=== PATIENT | male | born 1945 | race Caucasian/White ===

== ENCOUNTER → 2017-01-04 | Outpatient (CLI) | payer MEDICARE, OTHER | END | disposition home or self-care (01) | LOC: GMAB 11:02 | PROVIDERS: ATTEND Family Medicine | DX: N18.3 Chronic kidney disease, stage 3 (moderate) (principal) ==

== ENCOUNTER → 2017-03-07 | Outpatient (CLI) | payer MEDICARE, OTHER | END | disposition home or self-care (01) | LOC: GMAB 14:50 | PROVIDERS: ATTEND Family Medicine | DX: Z12.5 Encounter for screening for malignant neoplasm of prostate (principal); I10 Essential (primary) hypertension | CPT/HCPCS: 84443; G0103 ==

== ENCOUNTER → 2017-03-09 | Outpatient (CLI) | payer MEDICARE | LOC: GMAB 16:52 | PROVIDERS: ATTEND Family Medicine | DX: D50.9 Iron deficiency anemia, unspecified (principal); E53.8 Deficiency of other specified B group vitamins ==

== ENCOUNTER → 2017-05-22 | Outpatient (CLI) | payer MEDICARE, OTHER | LOC: GMAB 16:48 | PROVIDERS: ATTEND Family Medicine | DX: N18.3 Chronic kidney disease, stage 3 (moderate) (principal) ==

== ENCOUNTER 2017-06-14 07:45 | Day surgery (SDC) | payer MEDICARE, OTHER ==
[~2017-06-14 07:45] MED LIST: LACTATED RINGERS 1,000 ML ONE
--- NOTE | 2017-06-14 09:15 | OP ---
DATE OF SURGERY: 06/14/17 PREPROCEDURE DIAGNOSIS: 1. History of colonic polyps with last colonoscopy 8 years ago. POSTPROCEDURE DIAGNOSIS: 1. Ascending colon polyp. 2. Diverticulosis. PROCEDURE: 1. Colonoscopy with snare polypectomy. SURGEON: Jefry Connelly MD. SEDATION: Monitored anesthesia care. ESTIMATED BLOOD LOSS: Less than 5 mL. PROCEDURE: Informed consent was obtained prior to sedation. The preprocedure cardiopulmonary assessment was satisfactory. The patient was brought to the Endoscopy Suite and placed in the left lateral decubitus position. The patient was then sedated by the anesthesia team. Digital rectal exam revealed no abnormalities. The tip of the Olympus colonoscope was inserted into the rectum and advanced under direct visualization to the terminal ileum. The cecum was identified by the presence of the appendiceal orifice and ileocecal valve. Preparation of the colon was good. Upon reaching the cecum, the endoscope was slowly withdrawn from the patient with careful attention paid to the entire colonic mucosa for the identification of any flat polyps or small vascular lesions. In the ascending colon, there was a 5 mm sessile polyp. This was resected with a cold snare and retrieved completely. In the sigmoid colon, there was moderate diverticulosis. Retroflexed view of the anal verge showed no abnormalities. The endoscope was then withdrawn from the patient and the procedure terminated. RECOMMENDATION: 1. Discharge the patient home with escort. 2. Advance to regular diet. 3. Resume regular activity tomorrow. 4. Followup pathology results. 5. Surveillance colonoscopy in 5 years' time. #[id number] [facility]
[2017-06-14] MEDS ORDERED: PROPOFOL 200 MG/20 ML VIAL IV ONE (10:00)
[2017-06-14 10:52] VITALS: BP 156/80; TEMP 98.3; O2SAT 99
== END 2017-06-14 10:05 | disposition home or self-care (01) ==
LOC: AMB 07:45
PROVIDERS: ATTEND Internal Medicine Gastroenterology
DX: R19.7 Diarrhea, unspecified (principal); D12.2 Benign neoplasm of ascending colon; K57.30 Diverticulosis of large intestine without perforation or abscess without bleeding; E78.5 Hyperlipidemia, unspecified; I10 Essential (primary) hypertension; K21.9 Gastro-esophageal reflux disease without esophagitis; Z86.010 Personal history of colon polyps; Z79.82 Long term (current) use of aspirin; Z79.899 Other long term (current) drug therapy
CPT/HCPCS: 00810; 45385; 88305; J3490; J7120

== ENCOUNTER → 2017-07-04 | Outpatient (CLI) | payer MEDICARE, OTHER | END | disposition home or self-care (01) | LOC: GMAB 13:56 | PROVIDERS: ATTEND Family Medicine | DX: N18.4 Chronic kidney disease, stage 4 (severe) (principal); E03.9 Hypothyroidism, unspecified ==

== ENCOUNTER → 2017-08-07 | Outpatient (CLI) | payer MEDICARE, OTHER | END | disposition home or self-care (01) | LOC: GMAB 14:36 | PROVIDERS: ATTEND Family Medicine | DX: N18.4 Chronic kidney disease, stage 4 (severe) (principal) ==

== ENCOUNTER → 2017-09-18 | Outpatient (CLI) | payer MEDICARE, OTHER | END | disposition home or self-care (01) | LOC: GMAB 14:41 | PROVIDERS: ATTEND Family Medicine | DX: R97.20 Elevated prostate specific antigen [PSA] (principal) ==

== ENCOUNTER → 2017-11-06 | Outpatient (CLI) | payer MEDICARE, OTHER | LOC: GMAB 14:44 | PROVIDERS: ATTEND Family Medicine | DX: N18.4 Chronic kidney disease, stage 4 (severe) (principal) ==

== ENCOUNTER → 2017-12-15 | Outpatient (CLI) | payer MEDICARE, OTHER | LOC: GMAB 11:27 | PROVIDERS: ATTEND Family Medicine | DX: N18.4 Chronic kidney disease, stage 4 (severe) (principal) ==

== ENCOUNTER → 2018-02-19 | Outpatient (CLI) | payer MEDICARE, OTHER | LOC: GMAB 14:32 | PROVIDERS: ATTEND Family Medicine | DX: N18.4 Chronic kidney disease, stage 4 (severe) (principal) ==

== ENCOUNTER → 2018-05-28 | Outpatient (CLI) | payer MEDICARE, OTHER | LOC: GMAE 17:14 | PROVIDERS: ATTEND Family Medicine | DX: N18.4 Chronic kidney disease, stage 4 (severe) (principal); I12.9 Hypertensive chronic kidney disease with stage 1 through stage 4 chronic kidney disease, or unspecified chronic kidney disease ==

== ENCOUNTER → 2018-06-01 | Outpatient (CLI) | payer MEDICARE, OTHER ==
--- NOTE | 2018-06-04 08:06 | MRI ---
EXAM DESCRIPTION: Brain w/oContrast (accession [id number]), Orbit,Face Neck w/o Contrast (accession [id number]) CLINICAL HISTORY: CLONIC HEMIFACIAL SPASM COMPARISON: None TECHNIQUE: Multiplanar, multi sequence MR images of the head are obtained without IV gadolinium contrast using standard imaging protocol. MRI images of the orbits are also obtained with and without infusion of IV gadolinium contrast using standard imaging protocol. FINDINGS: The midline structures are not displaced. Sulci are age appropriate. The lateral, third, and fourth ventricles are normal in size, shape, and anatomic positioning. Normal basilio-white differentiation is seen. Normal flow voids are seen in the major intracranial vessels including the dural venous sinuses. Plaque is seen in the left vertebral artery at the skull base. The left vertebral artery is dominant. There is no evidence of mass, mass effect, hydrocephalus, or acute intracranial hemorrhage. No abnormal extra-axial fluid collections are seen. No abnormal increased signal is seen on FLAIR, T2, or diffusion-weighted sequences. No abnormal masses seen in the region of the internal auditory canal or cerebellopontine angle region. Cavernous sinuses are unremarkable. 7th and 8th cranial nerves are unremarkable. The cochlea and semicircular canals are normal and symmetric. The 5th cranial nerves are unremarkable. No abnormal increased T2 signal is seen in the region of the 7th cranial nerves. The 5th cranial nerves are unremarkable. Visualized parotid glands are unremarkable. The orbits and ocular globes are unremarkable. Extraocular muscles appear symmetric and unremarkable. Mild, 5 mm deviation of the mid bony nasal septum towards the left is seen. The pituitary is unremarkable. Mild mucosal thickening is seen in the bilateral maxillary sinuses. The visualized orbits and mastoid air cells are unremarkable. IMPRESSION: Age-appropriate atrophy. No MRI evidence of acute intracranial ischemia. Unremarkable MRI of the internal auditory canals and orbits. Electronically signed by: Brandon Leyva MD 06/04/2018 8:05 AM CDT
== END ==
LOC: MRI 13:00
PROVIDERS: ATTEND Otolaryngology
DX: G51.39 Clonic hemifacial spasm, unspecified (principal); G31.9 Degenerative disease of nervous system, unspecified

== ENCOUNTER → 2018-06-07 | Outpatient (CLI) | payer MEDICARE, OTHER ==
--- NOTE | 2018-06-08 08:39 | US ---
EXAM DESCRIPTION: Sonogram right upper quadrant limited CLINICAL HISTORY: ABN LIVER FUNCTION COMPARISON: Previous renal sonogram March 23, 2016 TECHNIQUE: Right upper quadrant ultrasound FINDINGS: Pancreas: Visualized portions of the pancreas are unremarkable. Bowel gas obscures some areas. Aorta/inferior vena cava: No aortic aneurysm. Normal inferior vena cava. Liver: The liver is homogeneous in texture with increased echogenicity consistent with hepatic steatosis. The liver length of 16 cm is normal. Tiny cyst in the inferior right lobe of the liver measures 8 mm. No solid appearing liver lesion or intrahepatic bile duct dilatation. No liver surface irregularity. Normal appearance of the portal vein and hepatic veins. Gallbladder: Gallbladder is normal in size. Echogenic foci in the gallbladder lumen could be small calculi, polyps or both. On one image, one of the foci appears to have posterior acoustical shadowing suggesting a small stone. On other images, some of the echogenic foci are extending into the lumen from the nondependent wall consistent with polyps in the 2 to 4 mm size range. Sonographic Whitlock sign was reported as negative. No gallbladder wall thickening or other evidence of acute inflammation. Common bile duct: Normal caliber measuring 3.0 mm. Right kidney: Renal length is 9.1 cm. Normal cortical echogenicity. There is diffuse cortical thinning consistent with atrophy or chronic scarring. No hydronephrosis is seen. No renal mass or shadowing calculus. Compared to previous study March 23, 2016, right renal length was measured at 9.3 cm at that time. There was cortical thinning and this appears to have progressed somewhat. IMPRESSION: Hyperechoic liver consistent with diffuse hepatic steatosis. There right renal cortex consistent with chronic scarring or atrophy. Small polyps and/or stones in the gallbladder. Electronically signed by: Bryan Mercado MD 06/08/2018 8:38 AM CDT
--- NOTE | 2018-06-08 08:41 | US ---
EXAM DESCRIPTION: Soft Tissue,Extremity CLINICAL HISTORY: 73 years Male, ENLARGED LYMPH NODES COMPARISON: None. FINDINGS: Patient is said to have a palpable mass in the left axillary region. Sono shows thickening of the fatty tissue with appearance suggesting a lipoma measuring approximately 4.5 cm in length and 1.3 cm in thickness. Unilateral with this 4 cm. No enlarged lymph nodes. IMPRESSION: Lipoma of the left axilla. Electronically signed by: Bryan Mercado MD 06/08/2018 8:39 AM CDT
== END ==
LOC: US 12:33
PROVIDERS: ATTEND Family Medicine
DX: R94.5 Abnormal results of liver function studies (principal); R59.0 Localized enlarged lymph nodes

== ENCOUNTER → 2018-06-14 | Outpatient (CLI) | payer MEDICARE, OTHER | LOC: GMAE 14:40 | PROVIDERS: ATTEND Family Medicine | DX: R94.5 Abnormal results of liver function studies (principal) ==

== ENCOUNTER 2018-07-22 15:18 | Emergency (ER) | payer MEDICARE, OTHER ==
[2018-07-22] MEDS ORDERED: SODIUM CHLORIDE 0.9% 1000ML 1,000 ML IVS ONE ×2 (15:42→17:42)
--- NOTE | 2018-07-22 16:46 | RAD ---
EXAM DESCRIPTION: Chest,1 View CLINICAL HISTORY: cough COMPARISON: 02/22/2016 FINDINGS: There is mildly increased prominence of the right superior mediastinum / right perihilar soft tissue attenuation,, which suggests enlargement of the ascending aorta or of increased caliber of central right pulmonary vessels versus right perihilar lymph node enlargement. Cardiac silhouette is otherwise within normal limits. There is no other focal parenchymal or pleural disease. Visualized osseous structures are within normal limits. IMPRESSION: Increase in right perihilar/superior mediastinal volume on the right. No other interval change. Electronically signed by: Dao Gant 07/22/2018 4:44 PM [employer]
--- NOTE | 2018-07-22 16:47 | ED.PDOC ---
History of Present Illness - General Chief Complaint: Respiratory Problem Stated Complaint: SOB, increased aching, disoriented Time Seen by Provider: 07/22/18 16:40 Source: patient Exam Limitations: no limitations - History of Present Illness Comments: CONFUSION AND SON SINCE MONDAY. HE VOICES THAT HE WAS RECENTLY PLACED ON BACLOFEN AND SINCE THEN HE SEEMS CONFUSED AND SOB. THE PATIENT'S SISTER IS AT THE BEDSIDE AND VOICES THAT HE HAS DETERIORATED SINCE LAST MONDAY. Timing/Duration: week Cough Quality/Degree: moderate Possible Cause: no prior episodes Improving Factors: nothing Worsening Factors: nothing Associated Symptoms: other - CONFUSION Allergies/Adverse Reactions: Allergies NO KNOWN ALLERGY Allergy (Unverified 11/29/12 08:46) Home Medications: Ambulatory Orders Aspirin [Baby Aspirin] 81 mg PO BEDTIME 02/22/16 Lisinopril [Prinivil] 20 mg PO BID 02/22/16 Omeprazole [Prilosec Cap] 20 mg PO ACBK 02/22/16 amLODIPine BESYLATE [Norvasc] 10 mg PO DAILY 02/22/16 Simvastatin [Zocor] 20 mg PO DAILY 06/12/17 Baclofen [Baclofen] 5 mg PO TID 07/22/18 Telmisartan [Telmisartan] 80 mg PO DAILY 07/22/18 Review of Systems - Review of Systems Constitutional: States: malaise, weakness EENTM: States: no symptoms reported Respiratory: States: cough, short of breath Cardiology: States: palpitations Gastrointestinal/Abdominal: States: no symptoms reported Genitourinary: States: no symptoms reported Musculoskeletal: States: joint swelling Skin: States: no symptoms reported Neurological: States: no symptoms reported Endocrine: States: no symptoms reported Hematologic/Lymphatic: States: no symptoms reported Past Medical History (General) - Patient Medical History Hx Stroke: No Hx Cardiac Disorders: Yes - hypercholesterolemia Hx Congestive Heart Failure: No Hx Hypertension: Yes Hx Diabetes: No Hx Gastroesophageal Reflux: Yes Hx MRSA: No - Vaccination History Hx Influenza Vaccination: No Hx Pneumococcal Vaccination: Yes - Social History Hx Tobacco Use: No Hx Alcohol Use: No Family Medical History - Family History Father Family History: Unknown Living Status: Cause of : cancer Mother Living Status: Age at (years of age): 80' Cause of : DVT Hx Family Cancer: Yes Physical Exam - Physical Exam General Appearance: Alert, Anxious, Well Developed, Well Hydrated Eye Exam: bilateral normal ENT Exam: normal ENT inspection, other - THE PATIENT HAS PTOSIS OF THE LEFT UPPER LID Neck: non-tender Respiratory: chest non-tender, lungs clear, normal breath sounds Cardiovascular/Chest: no edema, no gallop, irregularly irregular Gastrointestinal/Abdominal: normal bowel sounds, non tender, soft, no organomegaly, no pulsatile mass Extremity: normal range of motion, non-tender, normal inspection Neurologic: no motor/sensory deficits, alert, other - MOTOTR STREGHT IS WEAL ON ALL FOUR EXTREMITIES W/O FOCALIZATION Progress - Progress Progress: 07/22/18 18:55 07/22/18 16:15 EKG STAT 07/22/18 16:41 URINE DRUG SCREEN, 7 ASSAY Stat UA [URINALYSIS] Stat 07/22/18 17:40 Sodium Bicarbonate Syringe 100 meq Dextrose 5% 1000ML [D5W 1000ml] 1,000 ml IV .QD 07/22/18 17:46 BLOOD CULTURE Stat Laboratory Results WBC 10.0 K/mm3 (4.8-10.8) 07/22/18 16:18 RBC 3.22 M/mm3 (4.70-6.10) L 07/22/18 16:18 Hgb 11.3 gm/dL (14.0-18.0) L 07/22/18 16:18 Hct 37.0 % (42.0-52.0) L 07/22/18 16:18 MCV 115.2 fl (80.0-94.0) H 07/22/18 16:18 MCH 35.0 pg (27.0-31.0) H 07/22/18 16:18 MCHC 30.4 g/dL (33.0-37.0) L 07/22/18 16:18 RDW 22.7 % (11.5-14.5) H 07/22/18 16:18 Plt Count 276 K/mm3 (130-400) 07/22/18 16:18 MPV 8.9 fl (7.40-10.4) 07/22/18 16:18 Absolute Neuts (auto) 8.10 K/uL (1.8-6.8) H 07/22/18 16:18 Absolute Lymphs (auto) 0.50 K/uL (1.0-3.4) L 07/22/18 16:18 Absolute Monos (auto) 1.40 K/uL (0.2-0.8) H 07/22/18 16:18 Absolute Eos (auto) 0.00 K/uL (0.0-0.4) 07/22/18 16:18 Absolute Basos (auto) 0.00 K/uL (0.0-0.1) 07/22/18 16:18 Neutrophils % 81.1 % (42.0-78.0) H 07/22/18 16:18 Lymphocytes % 5.0 % (20.0-50.0) L 07/22/18 16:18 Monocytes % 13.7 % (2.0-9.0) H 07/22/18 16:18 Eosinophils % 0.0 % (1.0-5.0) L 07/22/18 16:18 Basophils % 0.2 % (0.0-2.0) 07/22/18 16:18 ESR 21 mm/hr (0-20) H 07/22/18 16:41 PT 10.5 SECONDS (9.0-10.9) 07/22/18 16:18 INR 1.05 (0.9-1.15) 07/22/18 16:18 PTT (SP) 23.3 SECONDS (21.8-31.6) 07/22/18 16:18 pCO2 18 mmHg (35-48) L* 07/22/18 16:41 pO2 119 mmHg (83-108) H* 07/22/18 16:41 HCO3 5.6 mmol/L 07/22/18 16:41 ABG pH 7.120 (7.35-7.45) L* 07/22/18 16:41 ABG O2 Saturation 98.1 % (95.0-99.0) 07/22/18 16:41 ABG Base Excess -22.4 mmol/L 07/22/18 16:41 ABG Deoxyhemoglobin 1.9 % (0.0-5.0) 07/22/18 16:41 Oxyhemoglobin % 96.1 % (94.0-98.0) 07/22/18 16:41 Carboxyhemoglobin % 0.2 % (0.5-1.5) L 07/22/18 16:41 Methemoglobin % Sat 1.8 % (0.0-1.5) H 07/22/18 16:41 Calc Total Hemoglobin 10.0 g/dL (13.5-17.5) L 07/22/18 16:41 Sodium 140 mmol/L (135-145) 07/22/18 16:18 Potassium 5.6 mmol/L (3.6-5.0) H 07/22/18 16:18 Chloride 106 mmol/L (101-111) 07/22/18 16:18 Carbon Dioxide 9 mmol/L (21-31) L* 07/22/18 16:18 Anion Gap 30.6 (12-18) H 07/22/18 16:18 BUN 53 mg/dL (7-18) H 07/22/18 16:18 Creatinine 5.65 mg/dL (0.6-1.3) H 07/22/18 16:18 BUN/Creatinine Ratio 9.4 (10-20) L 07/22/18 16:18 Random Glucose 64 mg/dL (70-105) L 07/22/18 16:18 Serum Osmolality 291.9 mOsm/L (275-295) 07/22/18 16:18 Lactic Acid 3.4 mmol/L (0.5-2.2) H* 07/22/18 16:41 Calcium 8.9 mg/dL (8.4-10.2) 07/22/18 16:18 Magnesium 2.3 mg/dL (1.8-2.5) 07/22/18 16:18 Ammonia 66 umol/L (10-35) H* 07/22/18 16:41 Creatine Kinase 730 IU/L (38-174) H* 07/22/18 16:18 CK-MB (CK-2) 44.6 ng/mL (0.0-4.4) H* 07/22/18 16:18 CK-MB (CK-2) % 6.11 % (0.0-3.5) H 07/22/18 16:18 Troponin I 0.03 ng/mL (0.01-0.05) 07/22/18 16:18 B-Natriuretic Peptide 355.0 pg/ml (0-100) H* 07/22/18 16:18 07/22/18 19:[address] PALMER- ACCEPTS PATIENT IN THE ED AT [facility]. - Results/Orders Results/Orders: CT OF THE BRAIN WAS NEGATIVE. CXR WAS NEGATIVE. BP NOW AFTER 2000 CC RNAZC=506/63 EKG: HR OF 80, QRS OF 88 QTC OF 463, AXES OF -16 DEGREES. IMPRESSION ATRIAL FIBRILLATION. THE TRACING IS COMPARED TO ONE DATE2015. AT THAT TIME HE WAS ON SINUS RHYTHM AT A RATE OF 65. AMMOMIUM LEVEL IS 66. Departure - Departure Clinical Impression: Atrial fibrillation, new onset, Acute kidney injury, Metabolic acidosis, Metabolic encephalopathy Sepsis Qualifiers: Sepsis type: sepsis due to unspecified organism Qualified Code(s): A41.9 - Sepsis, unspecified organism Time of Disposition: 19:17 Disposition: Transfer to Hospital Condition: Serious Referrals: YOANDY COOK MD [Primary Care Provider] - 1-2 Weeks Home Medications: Ambulatory Orders Aspirin [Baby Aspirin] 81 mg PO BEDTIME 02/22/16 Lisinopril [Prinivil] 20 mg PO BID 02/22/16 Omeprazole [Prilosec Cap] 20 mg PO ACBK 02/22/16 amLODIPine BESYLATE [Norvasc] 10 mg PO DAILY 02/22/16 Simvastatin [Zocor] 20 mg PO DAILY 06/12/17 Baclofen [Baclofen] 5 mg PO TID 07/22/18 Telmisartan [Telmisartan] 80 mg PO DAILY 07/22/18 Critical Care Note - Critical Care Note Total Time (mins): 75 Comments: CRITICAL EVENT: CONFUSION AND SOB CRITICAL FINDINGS, SEVERE SEPSIS, ACUTE KIDNEY INJURY, METABOLIC ACIDOSIS, METABOLIC ENCEPHALOPATHY, ATRIAL FIBRILLATION-NEW ONSET CRITICAL ACTIONS: SEPSIS ACTIVATION, IV CRISTALLOIDS, IV ANTIBIOTICS, IV BICARBONATE, TRANSFER TO HIGHER LEVEL OF CARE CRITICAL TIME; 75 MINUTES SYSTEMS AT RISK: CARDIOVASCULAR, RENAL, NEUROLOGICAL Transfer to Outside Facility - Transfer Information Accepting Facility: [facility] Reason for Transfer: specialized care not available
[2018-07-22] MEDS ORDERED: SODIUM CHLORIDE 0.9% 1000ML 1,000 ML ONE (17:32)
--- NOTE | 2018-07-22 17:39 | CT ---
EXAM DESCRIPTION: Head CT, noncontrast CLINICAL HISTORY: 73 years Male confusion COMPARISON: November 29, 2012. TECHNIQUE: Noncontrast axial scans of the brain were obtained. Sagittal and coronal reformatted images were performed. Scanning artifacts are noted on several mid and lower slices, probably due to slight motion and beam hardening artifacts. There is slight positional asymmetry. This exam was performed according to our departmental dose-optimization program, which includes automated exposure control, adjustment of the mA and/or kV according to patient size and/or use of iterative reconstruction technique. FINDINGS: There is no evidence of acute intracranial hemorrhage, extracerebral fluid collection, midline shift, obvious mass effect, or major territorial infarction. Cortical sulci and ventricular size are in keeping with the patient's age, possibly minimally greater than on the previous examination. Florentino-white distinction appears preserved. The bony calvarium appears intact. Visualized paranasal sinuses and mastoid air cells appear clear. IMPRESSION: No evidence of acute intracranial hemorrhage. Mild age-related changes. Slightly technically limited study. Electronically signed by: Kirt Jo MD 07/22/2018 5:[address] [facility]
[2018-07-22] MEDS ORDERED: SODIUM BICARBONATE SYRINGE 100 MEQ in DEXTROSE 5% 1000ML 1,000 ML IV PRN (17:40)
[2018-07-22] MEDS ORDERED: CEFEPIME 2 GM in SODIUM CHL 0.9% 50ML MIN-BAG+ 50 ML IVPB ONE (17:43)
[2018-07-22] MEDS ORDERED: DEXTROSE 5% 1000ML 1,000 ML IVS ONE (17:46)
[2018-07-22] MEDS ORDERED: SODIUM BICARBONATE SYRINGE 50 MEQ/50 ML SYG IV ONE (17:46)
[2018-07-22 18:00] VITALS: TEMP 96.4
[2018-07-22] MEDS ORDERED: CEFEPIME 2 GM VIAL ONE (18:03)
[2018-07-22] MEDS ORDERED: SODIUM CHL 0.9% 50ML MIN-BAG+ 50 ML IVPB ONE (18:03)
[2018-07-22 20:11] VITALS: BP 124/62; O2SAT 98
== END 2018-07-22 20:11 | disposition short-term general hospital (02) ==
LOC: ER 15:18
DX: A41.9 Sepsis, unspecified organism (principal); N17.9 Acute kidney failure, unspecified; E87.2 Acidosis; G93.41 Metabolic encephalopathy; I48.91 Unspecified atrial fibrillation; R06.02 Shortness of breath; E78.00 Pure hypercholesterolemia, unspecified; I10 Essential (primary) hypertension; K21.9 Gastro-esophageal reflux disease without esophagitis; Z79.82 Long term (current) use of aspirin; Z79.899 Other long term (current) drug therapy
CPT/HCPCS: 36415; 36600; 70450; 71045; 80048; 82140; 82550; 82553; 82803; 83605; 83880; 84484; 85025; 85610; 85651; 85730; 93005; J0692; J7030; J7050; J7060

== ENCOUNTER → 2018-08-01 | Outpatient (CLI) | payer MEDICARE, OTHER | LOC: GMAE 14:33 | PROVIDERS: ATTEND Family Medicine | DX: N18.4 Chronic kidney disease, stage 4 (severe) (principal) ==

== ENCOUNTER → 2018-12-03 | Outpatient (CLI) | payer MEDICARE, OTHER | LOC: GMAE 15:11 | PROVIDERS: ATTEND Family Medicine | DX: N18.4 Chronic kidney disease, stage 4 (severe) (principal) ==

== ENCOUNTER → 2019-11-07 | Outpatient (CLI) | payer MEDICARE, OTHER | DX: M81.0 Age-related osteoporosis without current pathological fracture (principal) ==

== ENCOUNTER 2019-11-21 07:00 | Day surgery (SDC) | payer MEDICARE, OTHER ==
[~2019-11-21 07:00] MED LIST changes: -LACTATED RINGERS 1,000 ML ONE; +LIDOCAINE 1% 10 ML VIAL INJ ONE; +PROPOFOL 200 MG/20 ML VIAL IV ONE
[2019-11-21] MEDS ORDERED: LACTATED RINGERS 1,000 ML ONE (07:24)
--- NOTE | 2019-11-21 08:46 | OP ---
DATE OF PROCEDURE: 11/21/19 PREOPERATIVE DIAGNOSIS: 1. Known history of paraesophageal hernia with increasing symptoms, rule out strangulation or ulcer. POSTOPERATIVE DIAGNOSIS: 1. Large paraesophageal hernia. PROCEDURE: 1. EGD. SURGEON: Demetrius Andino MD ANESTHESIA: General. FINDINGS: He had a very large paraesophageal hernia, at least more than half of the stomach. There were no Curling's ulcers at the diaphragm and no other ulcers or evaluation of bleeding or evidence of strangulation at this time. COMPLICATIONS: None. ESTIMATED BLOOD LOSS: None. CONDITION: Stable. PLAN: Discharge. We will continue to monitor him for his symptoms. INDICATION: This is a man with a history of a known paraesophageal hernia. It had recently become more symptomatic. This is concerning for possible evolvement of a strangulation which could be devastating. We explained this to him. He has had no black stools, but also there could be ulcers created by the hernia. He was consented for this EGD and brought to the Suite. PROCEDURE: Anesthesia was induced. The esophagus was entered without difficulty. The esophagus overall appeared normal. Once we entered the stomach, it was difficult to get into the main body because of the hernia. Once we found our route to get in, then we got into the third portion of the duodenum. All that looked fine. Upon withdrawal and retroflexion, it revealed at least half the stomach, probably two-thirds, in the chest. There was no ulcer at the hernia. There was a fairly wide-base, and I did not see any evidence of twisting or strangulation at this time. We did examine the proximal stomach and it appeared fine as well. Air was aspirated, the scope withdrawn. I discussed with the patient if there are increasing symptoms, stomach strangulation could be an emergency, but I think at this point we will continue to observe him. If there does become anymore suspicion, then a CT scan show any evidence of inflammation around the stomach. #[id number] [facility]
[2019-11-21 10:13] VITALS: BP 139/75; TEMP 98.9; O2SAT 100
== END 2019-11-21 09:00 | disposition home or self-care (01) ==
LOC: AMB 07:00
PROVIDERS: ATTEND Surgery
DX: K44.9 Diaphragmatic hernia without obstruction or gangrene (principal); I10 Essential (primary) hypertension; D64.9 Anemia, unspecified; E78.00 Pure hypercholesterolemia, unspecified; K21.9 Gastro-esophageal reflux disease without esophagitis; Z87.891 Personal history of nicotine dependence; Z88.1 Allergy status to other antibiotic agents; Z88.8 Allergy status to other drugs, medicaments and biological substances; Z79.82 Long term (current) use of aspirin; Z79.899 Other long term (current) drug therapy
CPT/HCPCS: 00731; 43239; J3490; J7120

== ENCOUNTER 2020-03-05 05:38 | Inpatient (IN) | payer MEDICARE, OTHER ==
[2020-03-05] MEDS ORDERED: LACTATED RINGERS 1,000 ML ONE ×3 (06:39→12:03)
[2020-03-05] MEDS ORDERED: DEXAMETHASONE INJ 10 MG/ML VIAL ONE (07:00)
[2020-03-05] MEDS ORDERED: LIDOCAINE 1% 10 ML VIAL INJ ONE (07:00)
[2020-03-05] MEDS ORDERED: PROPOFOL 200 MG/20 ML VIAL IV ONE (07:00)
[2020-03-05] MEDS ORDERED: ePHEDrine SULF 50 MG/ML ONE (07:00)
[2020-03-05] MEDS ORDERED: ONDANSETRON INJ 4 MG/2 ML VIAL ONE (07:00)
[2020-03-05] MEDS ORDERED: ROCURONIUM BROMIDE 10 MG/ML VIAL ONE ×2 (07:15→08:59)
[2020-03-05] MEDS ORDERED: SODIUM CHL 0.9% 100ML MINI-BAG 100 ML IVPB ONE (08:22)
[2020-03-05] MEDS ORDERED: ceFAZolin SODIUM 1 GM VIAL ONE (08:22)
[2020-03-05] MEDS ORDERED: BUPIVACAINE 0.5% W/EPI 30 ML VIAL INJ ONE ×2 (08:33→09:05)
[2020-03-05] MEDS ORDERED: SUCCINYLCHOLINE CHLORIDE 200 MG/10 ML VIAL ONE (08:41)
[2020-03-05] MEDS ORDERED: fentaNYL CITRATE INJ 50 MCG/ML AMP ONE ×2 (08:59→09:00)
[2020-03-05] MEDS ORDERED: MIDAZOLAM INJ 2 MG/2 ML VIAL ONE (08:59)
[2020-03-05] MEDS ORDERED: OXYMETAZOLINE NASAL SPRAY 15 ML BTTL ONE (09:01)
[2020-03-05] MEDS ORDERED: SUGAMMADEX SODIUM 200 MG/2 ML VIAL IV ONE (10:39)
[2020-03-05] MEDS ORDERED: ONDANSETRON INJ 4 MG/2 ML VIAL IV PRN (11:33)
[2020-03-05] MEDS ORDERED: LACTATED RINGERS 1,000 ML IVS ONE (11:34)
[2020-03-05] MEDS ORDERED: MORPHINE SULFATE INJ 10 MG/ML VIAL IV PRN (11:35)
[2020-03-05] MEDS ORDERED: HYDROmorphone HCL INJ 2 MG/ML VIAL ONE (11:42)
[2020-03-05] MEDS ORDERED: HYDROmorphone HCL INJ 2 MG/ML VIAL IV ONE ×2 (11:44→12:05)
--- NOTE | 2020-03-05 11:58 | OP ---
DATE OF PROCEDURE: 03/05/20 PREOPERATIVE DIAGNOSIS: 1. Large paraesophageal hernia. POSTOPERATIVE DIAGNOSIS: 1. Large paraesophageal hernia. PROCEDURE: 1. Laparoscopic converted to open repair of paraesophageal hernia with mesh. 2. Placement of gastrostomy tube. SURGEON: Demetrius Andino MD. ANESTHESIA: General and local. FINDINGS: The entire stomach was up in the chest. The GE junction did come below the diaphragm. COMPLICATIONS: None. ESTIMATED BLOOD LOSS: Minimal. SPECIMEN: None. PLAN: Admit. INDICATION: The patient had an identified paraesophageal hernia. I had scoped him previously for pain. He had no evidence of ischemia. He has now had his cardiac clearance and we are scheduling him for laparoscopic, possible open, repair. PROCEDURE: The patient was brought to the Operative Suite in supine position. General anesthesia was induced. He was prepped and draped in sterile fashion. 0.5% Marcaine with epinephrine was used at the incision site. While maintaining upward traction, a moe was made near the base of the umbilicus. A Veress needle was introduced. There was free flow of fluid into the peritoneal cavity which was insufflated to an appropriate level of CO2 gas. The 5 mm trocar was placed followed by the camera. There was no evidence of bleeding or bowel injury. The patient was positioned. The two upper right abdominal 5 mm ports were placed and a left upper quadrant. He was positioned head up and at this time graspers were inserted. We began reducing the stomach. It was not a very large hole, but only the stomach was up to the entire stomach. The spleen appeared to be normal position. Getting into the lesser sac, we took down the omentum along the greater curvature all the way up to the diaphragm and began dissecting the sac. We got the sac freed up on the right side. When we went over to the left side, there was omentum up there which was reduced and some of the omentum from the lesser sac area was stuck up and with some traction on that, we could not quite get it dissected and there was a little bit of oozing from that area. This portion of the sac was fixed up there. Multiple attempts were made laparoscopically to maneuver and get behind and lateral and at this point we did not make any progress safely to reduce the remainder of the stomach and identify the esophagus, so we did decide to open. An upper midline incision was used. I was able then to bluntly and with the aid of cautery get the remainder of the fundus out of the chest as well as free that sac on the left side, identifying the vagus nerve which was kept out of harm's way. We had the esophagus isolated and the stomach completely down. At this point, the defect was approximately 7 cm from the esophagus, so that was closed completely with interrupted 0 Prolene sutures. We had a Ventralex ST mesh protected, so that was placed with the coated side toward the abdomen of course. This was secured with interrupted 2-0 Prolene sutures and had nice coverage over that. The stomach was examined and there was no evidence of bleeding. There was no bleeding in the chest either. We had placed a pack and watched it and it was nice and dry. We then placed a G-tube identified in appropriate position. A cut was made in the skin. We pulled the tube down. We did a gastrotomy, two pursestrings, placed the G-tube and secured the pursestrings so there would be no leakage. It was then secured to the anterior abdomen with interrupted 2-0 Silk sutures in 3 positions and secured at the skin. At this point, the hernia was repaired. All counts and recounts were correct. There was no evidence of complication or bleeding. The wounds were closed was running 0 PDS sutures. Skin was closed with jena. Dressing was applied. He was awakened and taken to Recovery to be admitted. #[id number] cc: Jeane Taveras MD [facility]
[2020-03-05] MEDS ORDERED: SODIUM CHL 0.9% 50ML MIN-BAG+ 50 ML IVPB ONE (13:16)
[2020-03-05] MEDS: cefOXitin SODIUM 1 GM in SODIUM CHL 0.9% 50ML MIN-BAG+ 50 ML IVPB SCH ×3 (13:24→23:19)
[2020-03-05] MEDS: PANTOPRAZOLE SODIUM IV 40 MG VIAL IV SCH (13:24)
--- NOTE | 2020-03-05 14:58 | CONS ---
SUPERVISING PHYSICIAN: Jeane Taveras MD DATE OF CONSULTATION: 03/05/20 REASON FOR CONSULTATION: Postoperative medical management. HISTORY OF PRESENT ILLNESS: Mr. Francois is a 74-year-old male patient that was scheduled to have an elective repair of a paraesophageal hernia by Dr. Andino. He had been cleared by cardiology. He was brought to the OR today. He had no intraoperative complications other than surgery was converted from a laparoscopic approach to an open procedure due to some difficulty with reduction of the stomach. He remained stable and was admitted postoperatively to the PACU and is now admitted to the Medical/Surgical Floor for continuation of treatment. He is in stable condition at time of admission. PAST MEDICAL HISTORY: 1. Hypertension. 2. Hyperlipidemia. 3. Rheumatic fever as a child. 4. Osteoporosis. PAST SURGICAL HISTORY: 1. Tonsillectomy and adenoidectomy in 1958. 2. Bilateral cataract removal in 2013. 3. Hand surgery in 1968. HOME MEDICATIONS: 1. Amlodipine 5 mg b.i.d. 2. Antacid 650 mg t.i.d. 3. Megared [place]-3 500 mg 1 daily. 4. Vitamin B12 1000 mcg daily. 5. Multivitamin 1 tablet daily. 6. Aspirin 81 mg daily. 7. Hydrochlorothiazide 12.5 mg daily. 8. Omeprazole 20 mg daily. 9. Lisinopril 20 mg daily. 10. Zocor 20 mg daily. ALLERGIES: BACLOFEN, INDOMETHACIN. FAMILY HISTORY: Father at age 68 due to lung cancer. Mother at age 88 due to hip fracture with blood clot and melanoma. One sister has melanoma. 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 He is . He has one child. He does have a history of using smokeless tobacco, but quit in 2008. He drinks alcohol on a fairly regular basis and typically consumes beer and mixed drinks. REVIEW OF SYSTEMS: CONSTITUTIONAL: Negative for any fevers, chills or general malaise. He has had some weight loss related to the hernia. HEENT: Negative for headaches, sore throats, nasal congestion, vision changes. RESPIRATORY: Negative for coughing, wheezing or shortness of breath. CARDIOVASCULAR: Negative for chest pain, palpitations or syncopal episodes. GASTROINTESTINAL: As noted in history of present illness. Negative for any recent abdominal pain, nausea, vomiting, diarrhea or constipation. GENITOURINARY: Negative for dysuria, hematuria, polyuria. MUSCULOSKELETAL: Negative for arthralgias, joint swelling. SKIN: Negative for lesions, rashes, moles or unexplained changes. NEUROLOGIC: Negative for headaches, syncopal episodes, dizziness, ataxia, seizures. HEMATOLOGIC: Negative for easy bruising, unexplained bleeding or transfusion reactions. PHYSICAL EXAMINATION: VITAL SIGNS: Temperature 97, pulse 75, blood pressure 152/87, respirations 16, satting 98% on 2 liters nasal cannula. GENERAL: The patient is resting comfortably. Does not appear to be in any acute distress. HEENT: Tympanic membranes clear bilaterally. Oropharynx is pink, moist without any lesions. NECK: Supple, nontender with full range of motion. No jugular venous distention. RESPIRATORY: There is no appreciable wheezing, rhonchi or rales. CHEST: Lungs sounds are clear to auscultation, just diminished towards the bases. HEART: Regular rate and rhythm without any appreciable murmurs, gallops, or rubs. ABDOMEN: Soft with hypoactive bowel sounds. There is an incision in place in the epigastric region, midline incision noted with a dressing in place. Abdomen palpation deferred due to immediate postoperative state. EXTREMITIES: Without any clubbing, cyanosis or edema. NEUROLOGIC: He is alert and oriented times three. Just a little bit drowsy postoperatively. Cranial nerves II-XII appear to be grossly intact. SKIN: Warm, pink and dry. LABORATORY: Postoperative CBC, CMP and magnesium pending. RADIOLOGY: No radiographic studies for review. ASSESSMENT: 1. Postoperative day 0 for laparoscopic converted to open repair of a paraesophageal hernia with mesh with placement of gastrostomy tube. 2. Hypertension. 3. Hyperlipidemia. 4. Osteoporosis. PLAN: I will follow the patient postoperatively as he continues with his postoperative management deferring postoperative surgical management to Dr. Andino. I anticipate he will probably go home in the next 24 to 48 hours. We will leave that up to Dr. Andino. Dr. Andino has ordered labs for in the morning. We will review his medications and continue those as appropriate to his care. He will be on DVT prophylaxis per protocol. Until the patient can transition to outpatient management, we will continue to monitor and treat as needed. #[id number] and [id number] [facility]
[2020-03-05] MEDS: MORPHINE SULFATE INJ 10 MG/ML VIAL IV PRN ×2 (16:45→20:52)
[2020-03-05] MEDS: KCL 20MEQ/D5 1/2NS 1,000 ML IVS PRN (17:42)
[2020-03-05] MEDS ORDERED: amLODIPine BESYLATE 5 MG TAB ONE (19:10)
[2020-03-05] MEDS ORDERED: hydroCHLOROthiazide 12.5 MG CAP ONE (19:10)
[2020-03-05] MEDS ORDERED: LISINOPRIL 10 MG TAB ONE (19:11)
[2020-03-05] MEDS ORDERED: ASPIRIN (CHEWABLE) 81 MG TAB ONE (19:11)
[2020-03-05] MEDS ORDERED: SIMVASTATIN 20 MG TAB ONE (19:11)
[2020-03-05] MEDS: LISINOPRIL 10 MG TAB PO SCH (20:26)
[2020-03-05] MEDS: SIMVASTATIN 20 MG TAB PO SCH (20:26)
[2020-03-05] MEDS: amLODIPine BESYLATE 5 MG TAB PO SCH (20:26)
[2020-03-05] MEDS: ASPIRIN (CHEWABLE) 81 MG TAB PO SCH (20:26)
[2020-03-05] MEDS: hydroCHLOROthiazide 12.5 MG CAP PO SCH (20:26)
[2020-03-05] MEDS ORDERED: ENOXAPARIN SODIUM 40 MG/0.4 ML SYG SUBCU SCH (21:00)
[2020-03-06] MEDS: KCL 20MEQ/D5 1/2NS 1,000 ML IVS PRN ×2 (05:02→16:13)
[2020-03-06] MEDS: cefOXitin SODIUM 1 GM in SODIUM CHL 0.9% 50ML MIN-BAG+ 50 ML IVPB SCH (05:03)
[2020-03-06] MEDS ORDERED: ALLOPURINOL 100 MG TAB ONE (07:01)
[2020-03-06] MEDS: ALLOPURINOL 100 MG TAB PO SCH (08:23)
[2020-03-06] MEDS: amLODIPine BESYLATE 5 MG TAB PO SCH ×2 (08:23→21:22)
[2020-03-06] MEDS: MORPHINE SULFATE INJ 10 MG/ML VIAL IV PRN ×3 (09:27→21:24)
[2020-03-06] MEDS ORDERED: MAGNESIUM SULFATE PREMIX 2GM 2 GM in PREMIX BAG 1 BAG IVPB ONE (10:23)
[2020-03-06] MEDS ORDERED: MAGNESIUM SULFATE PREMIX 2GM 50 ML IVPB ONE (10:28)
[2020-03-06] MEDS: PANTOPRAZOLE SODIUM IV 40 MG VIAL IV SCH (12:23)
[2020-03-06] MEDS ORDERED: ENOXAPARIN SODIUM 30 MG/0.3 ML SYG SUBCU ONE (20:01)
[2020-03-06] MEDS: SIMVASTATIN 20 MG TAB PO SCH (21:22)
[2020-03-06] MEDS: LISINOPRIL 10 MG TAB PO SCH (21:22)
[2020-03-06] MEDS: hydroCHLOROthiazide 12.5 MG CAP PO SCH (21:22)
[2020-03-06] MEDS: ASPIRIN (CHEWABLE) 81 MG TAB PO SCH (21:22)
[2020-03-06] MEDS: ENOXAPARIN SODIUM 30 MG/0.3 ML SYG SUBCU SCH (21:24)
[2020-03-07] MEDS: KCL 20MEQ/D5 1/2NS 1,000 ML IVS PRN ×2 (01:17→16:10)
[2020-03-07] MEDS: ALLOPURINOL 100 MG TAB PO SCH (07:49)
[2020-03-07] MEDS: amLODIPine BESYLATE 5 MG TAB PO SCH ×2 (07:51→20:35)
--- NOTE | 2020-03-07 09:23 | PN ---
SUPERVISING PHYSICIAN: Jefry Taveras MD DATE: 03/06/20 SUBJECTIVE: The patient is doing well this morning, he still has a little pain postoperatively. No nausea. He is able to tolerate some liquids. OBJECTIVE: VITAL SIGNS: Remain stable. He is afebrile with temperature 98.1,pulse 88, blood pressure 102/66, respirations are 16, oxygen saturation 96% on room air. GENERAL: Patient is resting comfortably. He utilizes a pillow for splinting, does not look to be in any acute distress. CHEST: Costovertebral angle tenderness. HEART: Regular rate and rhythm. ABDOMEN: Soft, tender postoperatively. Incision midline is clean and dry. No complications. Bowel sounds are hypoactive, EXTREMITIES: Without edema. NEUROLOGIC: Alert and oriented x3. LABORATORY: Postoperative H&H 8.3 and 25.0. Chemistries show creatinine of 2.87 which is close to his baseline around 2.6. Electrolytes within normal limits. Calcium a little low at 7.1 but albumin 2.4 to 7.8. AST 81, alkaline phosphatase 140, ALT 62. ASSESSMENT: 1. Postoperative day #1 for a laparoscopic converted to open with repair of esophageal hernia with mesh placement by Dr. Andino. 2. Electrolyte imbalance including hypomagnesemia. 3. Elevated liver functions with history of elevated liver function with history of excessive alcohol consumption. 4. Hypertension showing to be stable. 5. Hyperlipidemia. 6. Osteoporosis. PLAN: Will go ahead and replace his magnesium with 2 grams IV. I did talk to Dr. Taveras, the patient is followed by Dr. Tyson in regards to his renal function. Will check in the morning. Will defer the postoperative management to Dr. Andino. Hopefully, the patient will be able to discharge in the next 24 to 48 hours. Until then, we will continue to monitor and treat as needed.. #[id number] [facility]
[2020-03-07] MEDS ORDERED: MAGNESIUM SULFATE PREMIX 2GM 2 GM in PREMIX BAG 1 BAG IVPB ONE (09:54)
[2020-03-07] MEDS ORDERED: SODIUM CHLORIDE 0.9% (FLUSH) 10 ML SYG IV PRN (10:00)
[2020-03-07] MEDS: PANTOPRAZOLE SODIUM IV 40 MG VIAL IV SCH (11:36)
--- NOTE | 2020-03-07 13:39 | PN ---
SUPERVISING PHYSICIAN: Jefry Taveras M.D. DATE: 03/07/20 SUBJECTIVE: The patient is lying in bed resting quietly. Dr. Andino is here to see him as well. The patient is awake and alert. His diet will be advanced. OBJECTIVE: VITAL SIGNS: Temperature 98.2, heart rate 91, blood pressure 120/76, respiratory rate 16, O2 saturation 94% on room air. RESPIRATORY: Essentially clear to auscultation bilaterally. HEART: Regular rate and rhythm. GASTROINTESTINAL: Abdomen is soft, nondistended. He has a midline incision that is clean and dry. His bowel sounds are positive. NEUROLOGIC: He is awake, alert and oriented times three. LABORATORY: Hemoglobin 8.2, hematocrit 24.7. Sodium 131, carbon dioxide 16, calcium 7.2 and magnesium is 1.7. All other labs and films have been reviewed via the EMR. ASSESSMENT: 1. Postoperative day #2 for an open repair of an esophageal hernia with mesh placement by Dr. Andino. 2. Electrolyte imbalance including hypomagnesemia. 3. Elevated liver functions with history of elevated liver function due to alcohol c consumption. 4. Hypertension showing to be stable. 5. Hyperlipidemia. 6. Osteoporosis. PLAN: We will continue present supportive care. I have given him some magnesium supplementation and will follow Dr. Andino's recommendations. Dr. Andino has advanced his diet to a soft diet. He says he plans for discharge home approximately Monday. I have ordered routine lab. Will continue to follow him closely and treat as needed. #[id number] [facility]
[2020-03-07] MEDS: MORPHINE SULFATE INJ 10 MG/ML VIAL IV PRN (16:10)
[2020-03-07] MEDS: ENOXAPARIN SODIUM 30 MG/0.3 ML SYG SUBCU SCH (20:34)
[2020-03-07] MEDS: LISINOPRIL 10 MG TAB PO SCH (20:34)
[2020-03-07] MEDS: SIMVASTATIN 20 MG TAB PO SCH (20:34)
[2020-03-07] MEDS: ASPIRIN (CHEWABLE) 81 MG TAB PO SCH (20:35)
[2020-03-07] MEDS: hydroCHLOROthiazide 12.5 MG CAP PO SCH (20:35)
[2020-03-08] MEDS: KCL 20MEQ/D5 1/2NS 1,000 ML IVS PRN (04:40)
[2020-03-08] MEDS: ALLOPURINOL 100 MG TAB PO SCH (09:09)
[2020-03-08] MEDS: amLODIPine BESYLATE 5 MG TAB PO SCH ×2 (09:09→20:36)
[2020-03-08] MEDS ORDERED: SODIUM CHLORIDE 0.9% 500ML 500 ML IVS ONE (12:09)
[2020-03-08] MEDS: PANTOPRAZOLE SODIUM IV 40 MG VIAL IV SCH (12:36)
[2020-03-08] MEDS ORDERED: CALCIUM CARBONATE (ANTACID) 500 MG CHEWABLE TAB PO ONE (15:02)
[2020-03-08] MEDS: CALCIUM CARBONATE (ANTACID) 500 MG CHEWABLE TAB PO PRN (18:40)
[2020-03-08] MEDS: hydroCHLOROthiazide 12.5 MG CAP PO SCH (20:36)
[2020-03-08] MEDS: LISINOPRIL 10 MG TAB PO SCH (20:36)
[2020-03-08] MEDS: ASPIRIN (CHEWABLE) 81 MG TAB PO SCH (20:36)
[2020-03-08] MEDS: SIMVASTATIN 20 MG TAB PO SCH (20:36)
[2020-03-08] MEDS: ENOXAPARIN SODIUM 30 MG/0.3 ML SYG SUBCU SCH (20:36)
[2020-03-09] MEDS: CALCIUM CARBONATE (ANTACID) 500 MG CHEWABLE TAB PO PRN (01:08)
--- NOTE | 2020-03-09 08:11 | PN ---
SUPERVISING PHYSICIAN: Jeane Taveras MD DATE: 03/08/20 SUBJECTIVE: The patient is lying in bed. He had some nausea earlier this morning with his breakfast. At this time, his major complaint is with belching. He also has not eaten very well today. He says he just does not feel like it although he did finish his Boost. He also has gotten up and around in his room. He says it is somewhat painful, but it is better than it was yesterday. OBJECTIVE: VITAL SIGNS: Temperature 98, heart rate 58, blood pressure 115/69, respiratory rate 16, O2 saturation 96% on room air. RESPIRATORY: Essentially clear to auscultation bilaterally. CARDIAC: Regular rate and rhythm. NEUROLOGIC: Awake, alert and oriented times three. LABORATORY: WBCs 10.2, hemoglobin 8.8, hematocrit 27.1. He has a left shift on his differential. Sodium 128, BUN 35, creatinine 2.99, calcium 7.9, magnesium 2.2, total bilirubin 1.5, AST 44, alkaline phosphatase 148. All other labs and films have been reviewed via the EMR. ASSESSMENT: 1. Postoperative day #3 for open repair of a paraesophageal hernia with mesh with placement by Dr. Andino. 2. Electrolyte imbalance including hypomagnesemia, improved. 3. Elevated liver function tests with history of elevated liver function due to alcohol consumption. 4. Hypertension, stable. 5. Hyperlipidemia. 6. Osteoporosis. PLAN: We will continue present supportive care. Talked to Dr. Andino about antibiotics. Patient's WBC was normalo, so he will reevaluate tomorrow or at follow up. I have ordered lab for in the morning. I spoke with Dr. Andino and hopefully he plans for the patient be discharged home tomorrow. He will have close followup with him in clinic, but he will also round on him tomorrow. We will continue to monitor the patient closely and follow as needed. [facility][id number] [facility]
--- NOTE | 2020-03-09 08:43 | RAD ---
EXAM DESCRIPTION: Chest,2 Views CLINICAL HISTORY: baseline COMPARISON: Previous study July 22, 2018 TECHNIQUE: PA/lateral FINDINGS: Linear densities in the right perihilar region/minor fissure, left supradiaphragmatic region and peripheral left upper lobe consistent with discoid atelectasis. Slight blunting the cost phrenic angles consistent with small pleural effusions. Heart size is prominent with normal pulmonary vascularity. Question hiatal hernia behind the heart. No pneumothorax. Lungs are clear with no consolidating infiltrate. Lateral view shows intact sternum and T-spine. IMPRESSION: Bilateral discoid atelectasis. Small bilateral pleural effusions. Electronically signed by: Bryan Mercado MD 03/09/2020 8:42 AM CDT
[2020-03-09] MEDS: amLODIPine BESYLATE 5 MG TAB PO SCH (10:10)
[2020-03-09] MEDS: ALLOPURINOL 100 MG TAB PO SCH (10:10)
--- NOTE | 2020-03-09 15:35 | DS ---
SUPERVISING PHYSICIAN: Demetrius Arevalo M.D. ADMISSION DIAGNOSIS: 1. Paraesophageal hernia status post repair. Was placed on a gastrostomy tube. 2. Hypertension. 3. Hyperlipidemia. 4. Osteoporosis. 5. Chronic renal failure. DISCHARGE DIAGNOSIS: 1. Paraesophageal hernia status post repair. Was placed on a gastrostomy tube. 2. Hypertension. 3. Hyperlipidemia. 4. Osteoporosis. 5. Chronic renal failure. HOSPITAL COURSE: This is a 74 year-old male patient who went for elective surgery for a paraesophageal hernia. This was done on 03/05/20 and there were no intraoperative complications. Over the next several days in the hospital the patient did fairly well. Had some intermittent nausea. No vomiting. He was not having any pain or nausea on day of discharge. He will be discharged home in stable condition. Diet is a mechanically soft diet. We will have [facility] begin to see him in a followup appointment scheduled with Dr. Andino on Monday, March 16 at 9:15. #[id number] [facility]TDD
[2020-03-09 17:58] VITALS: BP 126/72; TEMP 98.1; O2SAT 94
== END 2020-03-09 11:00 | disposition home health service (06) | DRG 328 ==
LOC: AMB 05:38 → UNDOADMIN 12:37 → MS 12:37
PROVIDERS: ADMIT Nurse Practitioner Family; ATTEND Surgery
PROC: 0DH60UZ Insertion of Feeding Device into Stomach, Open Approach (ICD-10-PCS; 2020-03-05)
PROC: 0BUT0JZ Supplement Diaphragm with Synthetic Substitute, Open Approach (ICD-10-PCS; principal; 2020-03-05 09:30)
DX: K44.9 Diaphragmatic hernia without obstruction or gangrene (principal); E83.42 Hypomagnesemia; R74.8 Abnormal levels of other serum enzymes; I12.9 Hypertensive chronic kidney disease with stage 1 through stage 4 chronic kidney disease, or unspecified chronic kidney disease; N18.9 Chronic kidney disease, unspecified; D64.9 Anemia, unspecified; E78.00 Pure hypercholesterolemia, unspecified; K21.9 Gastro-esophageal reflux disease without esophagitis; M81.0 Age-related osteoporosis without current pathological fracture; Z53.31 Laparoscopic surgical procedure converted to open procedure; Z87.891 Personal history of nicotine dependence; Z88.8 Allergy status to other drugs, medicaments and biological substances; Z79.1 Long term (current) use of non-steroidal anti-inflammatories (NSAID); Z79.82 Long term (current) use of aspirin; Z79.899 Other long term (current) drug therapy

== ENCOUNTER 2020-03-10 14:27 | Emergency (ER) | payer MEDICARE, OTHER ==
[2020-03-10] MEDS ORDERED: SODIUM CHLORIDE 0.9% (FLUSH) 10 ML SYG IV PRN (14:32)
[2020-03-10] MEDS ORDERED: SODIUM CHLORIDE 0.9% 1000ML 1,000 ML IVS ONE ×3 (14:33→17:35)
--- NOTE | 2020-03-10 14:38 | ED.PDOC ---
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 Family reported to EMS that patient was discharged from the hospital yesterday and was doing fine until yesterday evening. Since then he has developed diarrhea and reports ap proximately 6 episodes of watery diarrhea since then, most recently just prior to arrival. Family also reported just prior to arrival that he became confused and pale and sweaty and so EMS was called. On arrival patient was noted to have a D stick of 25, which improved to 154 with one half amp of D50. Patient was also noted to have increased respiratory effort and initial SPO2 of 70s% on room air on their arrival, which improved to 90% with nonrebreather. Here patient also complains of shortness of breath, worsening for the past couple of days. Reports additionally right upper back pain, which was more severe earlier but is now improved. Also reports intermittent nonproductive cough. Denies any chest pain, fevers, chills, sore throat, abdominal pain, nausea, vomiting, urinary symptoms, leg swelling. Patient was noted to have slurred speech by EMS. Patient reports this is new but began 2 days ago and has been unchanged. Denies any other focal weakness or numbness or other focal neurological deficit. Allergies/Adverse Reactions: Allergies Baclofen Allergy (Verified 03/10/20 14:46) Indomethacin [From Indocin] Allergy (Verified 03/10/20 14:46) Home Medications: Ambulatory Orders Aspirin [Baby Aspirin] 81 mg PO BEDTIME 02/22/16 Lisinopril [Prinivil] 20 mg PO BEDTIME 02/22/16 Omeprazole [Prilosec Cap] 20 mg PO BEDTIME 02/22/16 amLODIPine BESYLATE [Norvasc] 5 mg PO BID 02/22/16 Simvastatin [Zocor] 20 mg PO BEDTIME 06/12/17 Allopurinol [Zyloprim] 100 mg PO DAILY 11/19/19 Sodium Bicarbonate (Antacid) [Sodium Bicarbonate] 650 mg PO TID 11/19/19 Cyanocobalamin [Vitamin B-12] 1,000 mcg SL DAILY 03/04/20 Megared Superior [place]-3 500 mg 1 capsule PO DAILY 03/04/20 Multiple Vitamins W/ Minerals [Centrum Men] 1 tab PO DAILY 03/04/20 Review of Systems - Review of Systems Review of Systems: 03/10/20 17:42 as per HPI All other Systems: Reviewed and Negative Past Medical History (General) - Patient Medical History Hx Seizures: No Hx Stroke: No Hx Asthma: No Hx of COPD: No Hx Cardiac Disorders: Yes - hypercholesterolemia Hx Congestive Heart Failure: No Hx Pacemaker: No Hx Hypertension: Yes Hx Diabetes: No Hx Gastroesophageal Reflux: Yes Hx MRSA: No - Vaccination History Hx Influenza Vaccination: No Hx Pneumococcal Vaccination: Yes - Social History Hx Tobacco Use: No Hx Alcohol Use: No Hx Substance Use: No Hx Physical Abuse: No Hx Emotional Abuse: No Family Medical History - Family History Father Family History: Unknown Living Status: Cause of : cancer Mother Living Status: Age at (years of age): 80' Cause of : DVT Hx Family Cancer: Yes Physical Exam - Physical Exam General Appearance: Alert, Restless, Unkempt Eye Exam: bilateral normal Ears, Nose, Throat: hearing grossly normal, normal ENT inspection, normal pharynx Neck: non-tender, full range of motion, supple, normal inspection Respiratory: chest non-tender, other - slightly diminished BL bases, no rales or wheezes noted, tachypneic, RR 30, speaks in short sentences Cardiovascular/Chest: normal peripheral pulses, regular rate, rhythm, no edema, no gallop, no JVD, no murmur Peripheral Pulses: radial,right: 2+, radial,left: 2+ Gastrointestinal/Abdominal: soft, other - Gastrostomy tube in place with bilious output noted, to epigastric region there is an approximately 12 cm vertical incision with jena in place, wound appears clean/dry/intact. There is mild generalized tenderness to palpation considered postoperative in nature Back Exam: normal inspection, no vertebral tenderness, CVA tenderness (R), CVA tenderness (L) Extremity: normal range of motion, non-tender, no pedal edema, no calf tenderness Neurologic: no motor/sensory deficits, alert, normal mood/affect, oriented x 3, abnormal roller hand II-XII - Slurred speech, can understand approximately 50% of what patient says, facial droop - Slight left-sided facial droop noted Skin Exam: warm/dry, other - Scattered ecchymoses noted to bilateral upper extremities and abdominal region Progress - Progress Progress: 03/10/20 15:46 Hypoxic respiratory distress -also with hypotension, hypoglycemia, and diarrhea -Concern for sepsis, bacteremia, pneumonia, COVID-19, ACS, PE, bowel perforation, postoperative infection, C. difficile, UTI, CHF, other -SpO2 initially 57% on RA upon arrival -stat surgical consult upon arrival - Dr. Maria at bedside Slurred speech, Left facial droop -Concern for CVA, TIA, other -Obtain stat CT head without -Unfortunately patient is outside of the 4.5-hour window for TPA treatment. It also appears he is approximately 48 hours now since initial onset of symptoms and would likely also not be a candidate for any neuro invasive measures 03/10/20 17:54 -Labs and radiology imaging and reports reviewed. Pertinent for WBC 5700 with 51% bands, 33% neutrophils, and 12% lymphocytes. Initial lactic acid level is 3.8. BUN 51, creatinine 4.3, potassium 5.3, sodium 134, T bili 2.0, alk phos 150, AST 85, ALT 35, troponin 0 0.02, BNP 699, d-dimer 1630. -CT head reveals area of age-indeterminate ischemia in the right superior periventricular region but no other acute processes noted -CTA chest obtained which revealed no evidence of PE. There were small bilateral pleural effusions noted. There were also some postoperative changes noted around the distal esophagus with a small amount of free air. -CT abdomen/pelvis revealed air and fluid dilated small and large bowel to the level of the proximal descending colon with no evidence of mechanical obstruction. Ileus is considered in the differential. Inflammation around the rectosigmoid area could be considered consistent with colitis. There were some postoperative changes noted around the gastrostomy tube with a small amount of free air. No other acute changes were noted -All of the CT imaging was also reviewed personally by Dr. Maria, general surgery. He sees no acute surgical indications at this time. -Spoke with Dr. John at [facility] ED who states he is busy at the moment and will have to call me back. -At this time I am concerned for sepsis of unclear origin, consider colitis, postoperative infection, pneumonia, UTI, other. Patient also remains with hypoxic respiratory distress. I discussed that there are no further interventions we can give besides intubation and mechanical ventilation. He again firmly reiterates his DNR CODE STATUS and states he would never want to be intubated or be on a ventilator in any circumstance. Patient also has acute renal failure and symptoms consistent with acute ischemic stroke. However he is presenting well outside the time window for any therapeutic interventions. Given his numerous acute critical illnesses, I and Dr. Maria feel he would be better served at a higher level of care facility in case of need for ICU admission, specialist consultation, etc. -Patient has remained borderline hypotensive with 2 L of NS bolus. Giving another liter bolus. 03/10/20 19:01 -Patient's blood pressure currently improved to 100s over 50s, currently on Levophed at 10 mcg/minute. -Dr. John at [facility] ED called back and said no ICU bed availability. I then tried calling [facility] in [place] as well as [facility] who both declined because of no ICU bed availability. I do spoke with the transfer station operator for [place] who states that the [place] facilities are full and she will look at some other sister facilities and call me back. 03/10/20 19:17 -Spoke with ED physician at [facility] ED who accepts patient for transfer. -Respiratory panel back and negative for all tested pathogens including COVID- 19. 03/10/20 21:20 -Just after patient was accepted for transfer, he went into rapidly declining acute hypoxic respiratory distress as well as altered mental status. He was immediately moved to the trauma room in case of need for procedures or intubation. His son remained present at the bedside. I had a very succinct discussion with him regarding continued wishes for aggressive interventions. As the patient's son was present earlier during our CODE STATUS discussion while the patient was awake and coherent, he felt very comfortable with not changing the patient's CODE STATUS. I remained at the bedside in the patient continued to have both respiratory and cognitive decline with SPO2 dropping into the low 70s%. At that point I discussed with the patient's son that his appeared eminent. After brief discussion, the patient's son opted for us to discontinue any and all aggressive IV medications that were acting as potentially life- saving measures and continue only with comfort care measures. Thus in the presence of the ED nurses we carefully observe the patient for any signs of air hunger or pain or other distress and administered morphine 4 mg IV as needed. -A short while later the nurses called me back to the bedside as the patient had appeared to . Asystole was noted on the bus monitor and there were no measurable vital signs. I auscultated the chest for 1 minute and no audible spontaneous heart or lung sounds were noted and no chest rise was noted. He had lack of brainstem reflexes including corneal and gag reflexes. His pupils were fixed and dilated bilaterally. I pronounced the patient at 21:09 on 03/10/2020. Dr. Maria was additionally notified. -Primary cause of is cardiac arrest. Secondary causes of are felt to be acute hypoxic respiratory failure and sepsis. Mack Loyola MD Billing #[id number] 03/10/20 14:32 IV Care:Saline Lock per [facility] QSHIFT Telemetry .ONCE Sodium Chloride 0.9% (Flush) [Saline Flush Syringe] 10 ml IV PRN PRN 03/10/20 14:33 UA [URINALYSIS] Stat 03/10/20 14:45 EKG STAT 03/10/20 14:50 BLOOD CULTURE Stat 03/10/20 15:23 Hold Metformin x 48Hrs [id number] 03/10/20 17:08 CLOSTRIDIUM DIFFICILE AG/TOXIN Stat 03/10/20 17:14 Piperacillin/Tazobactam [Zosyn] 2.25 gm Sodium Chloride 0.9% 50Ml [NS 50ml] 50 ml IVPB ONCE Vancomycin HCl Inj 1,000 mg Sodium Chloride 0.9% 250Ml [NS 250ml] 250 ml IVPB ONCE 03/10/20 17:16 RESPIRATORY PANEL 2 Stat 03/10/20 17:25 LACTIC ACID Stat 03/10/20 17:33 Catheter:Berger QSHIFT 03/10/20 17:35 Sodium Chloride 0.9% 1000ML [Ns 1000 ml] 1,000 ml IVS ONCE URINALYSIS Stat 03/11/20 09:00 Pulse Ox Daily Laboratory Results - last 24 hr 03/10/20 03/10/20 03/10/20 14:50 14:50 14:50 WBC 5.7 RBC 2.82 L Hgb 10.8 L Hct 33.6 L MCV 119.2 H MCH 38.1 H MCHC 32.0 L RDW 16.5 H Plt Count 249 MPV 9.3 Absolute Neuts (auto) Not Reportable Absolute Lymphs (auto) Not Reportable Absolute Monos (auto) Not Reportable Absolute Eos (auto) Not Reportable Neutrophils % Not Reportable Neutrophils % (Manual) 33.0 L Lymphocytes % Not Reportable Lymphocytes % (Manual) 12.0 Monocytes % Not Reportable Monocytes % (Manual) 4.0 Eosinophils % Not Reportable Basophils % Not Reportable Band Neutrophils 51.0 H* Metamyelocytes 6.0 H Nucleated RBCs 2.0 Platelet Estimate Normal Macrocytosis 2+ D-Dimer, Quantitative 1630.0 H* Sodium 134 L Potassium 5.3 H Chloride 106 Carbon Dioxide 11 L* Anion Gap 22.3 H BUN 51 H D Creatinine 4.29 H D BUN/Creatinine Ratio 11.9 POC Glucose Random Glucose 21 L* Serum Osmolality 277.7 Lactic Acid Calcium 8.1 L Total Bilirubin 2.0 H D AST 84 H D ALT 35 Alkaline Phosphatase 150 H Troponin I B-Natriuretic Peptide 699.0 H* Serum Total Protein 5.3 L Albumin 2.5 L Globulin 2.8 Albumin/Globulin Ratio 0.9 L 03/10/20 03/10/20 03/10/20 14:50 14:50 14:50 WBC RBC Hgb Hct MCV MCH MCHC RDW Plt Count MPV Absolute Neuts (auto) Absolute Lymphs (auto) Absolute Monos (auto) Absolute Eos (auto) Neutrophils % Neutrophils % (Manual) Lymphocytes % Lymphocytes % (Manual) Monocytes % Monocytes % (Manual) Eosinophils % Basophils % Band Neutrophils Metamyelocytes Nucleated RBCs Platelet Estimate Macrocytosis D-Dimer, Quantitative Sodium Potassium Chloride Carbon Dioxide Anion Gap BUN Creatinine BUN/Creatinine Ratio POC Glucose 53 L Random Glucose Serum Osmolality Lactic Acid 3.8 H* Calcium Total Bilirubin AST ALT Alkaline Phosphatase Troponin I 0.02 B-Natriuretic Peptide Serum Total Protein Albumin Globulin Albumin/Globulin Ratio 03/10/20 03/10/20 15:24 17:38 WBC RBC Hgb Hct MCV MCH MCHC RDW Plt Count MPV Absolute Neuts (auto) Absolute Lymphs (auto) Absolute Monos (auto) Absolute Eos (auto) Neutrophils % Neutrophils % (Manual) Lymphocytes % Lymphocytes % (Manual) Monocytes % Monocytes % (Manual) Eosinophils % Basophils % Band Neutrophils Metamyelocytes Nucleated RBCs Platelet Estimate Macrocytosis D-Dimer, Quantitative Sodium Potassium Chloride Carbon Dioxide Anion Gap BUN Creatinine BUN/Creatinine Ratio POC Glucose 202 H D 89 Random Glucose Serum Osmolality Lactic Acid Calcium Total Bilirubin AST ALT Alkaline Phosphatase Troponin I B-Natriuretic Peptide Serum Total Protein Albumin Globulin Albumin/Globulin Ratio - EKG/XRAY/CT EKG: Sinus - Heart rate 90, no ST elevations noted, Q waves noted in inferior leads likely indicative of prior ND, nonspecific T wave inversions noted in anterolateral leads, axis normal, intervals normal, compared to 07/22/2018 EKG the T wave inversions appear new. XRAY: chest - Small area of haziness in the left lower lobe of the lung and Right perihilar region suspicious for infiltrate versus atelectasis per my read. Departure - Departure Clinical Impression: Cardiac arrest Sepsis Qualifiers: Sepsis type: sepsis due to unspecified organism Sepsis acute organ dysfunction status: with acute organ dysfunction Severe sepsis acute organ dysfunction type: acute respiratory failure Acute respiratory failure type: with hypoxia Severe sepsis shock status: with septic shock Qualified Code(s): A41.9 - Sepsis, unspecified organism; R65.21 - Severe sepsis with septic shock; J96.01 - Acute respiratory failure with hypoxia Respiratory failure with hypoxia Qualifiers: Chronicity: acute Qualified Code(s): J96.01 - Acute respiratory failure with hypoxia Time of Disposition: 21:09 Disposition: Home Medications: Ambulatory Orders Aspirin [Baby Aspirin] 81 mg PO BEDTIME 02/22/16 Lisinopril [Prinivil] 20 mg PO BEDTIME 02/22/16 Omeprazole [Prilosec Cap] 20 mg PO BEDTIME 02/22/16 amLODIPine BESYLATE [Norvasc] 5 mg PO BID 02/22/16 Simvastatin [Zocor] 20 mg PO BEDTIME 06/12/17 Allopurinol [Zyloprim] 100 mg PO DAILY 11/19/19 Sodium Bicarbonate (Antacid) [Sodium Bicarbonate] 650 mg PO TID 11/19/19 Cyanocobalamin [Vitamin B-12] 1,000 mcg SL DAILY 03/04/20 Megared Superior [place]-3 500 mg 1 capsule PO DAILY 03/04/20 Multiple Vitamins W/ Minerals [Centrum Men] 1 tab PO DAILY 03/04/20 Critical Care Note - Critical Care Note Total Time (mins): 75 Comments: Critical Care Time: Upon my evaluation, this patient had a high probability of life-threatening deterioration due to Acute hypoxic respiratory failure and sepsis with severe features, which required my direct attention, intervention, and management. I have provided 75 minutes of critical care time exclusive of separately billable procedures. My time included: direct patient care, review of labs and radiology, obtaining history from and counseling the patient and/or the family, discussion with consultants and/or other medical personnel, documentation, and monitoring for potential decompensation.
[2020-03-10] MEDS ORDERED: DEXTROSE 50% 25 GM/50 ML SYG IV ONE (14:58)
[2020-03-10 15:22] VITALS: TEMP 97
--- NOTE | 2020-03-10 15:27 | CT ---
EXAM DESCRIPTION: Head CT without contrast CLINICAL HISTORY: Slurred speech. Altered mental status COMPARISON: None. TECHNIQUE: Noncontrast spiral CT of the brain. This exam was performed according to our departmental dose-optimization program, which includes automated exposure control, adjustment of the mA and/or kV according to patient size and/or use of iterative reconstruction technique FINDINGS: No intracranial hemorrhage or mass lesion. Cerebral and cerebellar volume loss with prominence of cortical sulci and ventricular system. Periventricular white matter disease slightly more prominent right periventricular adjacent to the body right lateral ventricle, age indeterminate microvascular ischemia most likely series 5 image 42. Atherosclerotic vascular calcifications vertebrobasilar and cavernous carotid arteries No calvarial or skull base lesion. No paranasal sinus or mastoid fluid IMPRESSION: Mild white matter disease slightly greater superior right periventricular, age-indeterminate ischemia Cerebral and cerebellar volume loss CT is insensitive for early evaluation of acute stroke. If there is clinical concern for acute ischemia, an MRI may be considered. Electronically signed by: Jose M Vance MD 03/10/2020 3:14 PM CDT
--- NOTE | 2020-03-10 15:28 | RAD ---
EXAM DESCRIPTION: Chest x-ray,1 View CLINICAL HISTORY: 74 years Male, dyspnea, hypoxia COMPARISON: Previous study March 09, 2020 TECHNIQUE: AP portable chest. FINDINGS: Heart size is large with centrally increased pulmonary vascularity. No consolidating infiltrate. Patchy infiltrates or partial volume loss left paracardiac region which appears increased compared to previous study. Linear discoid atelectasis or scar in the right perihilar region is unchanged. Skin jena in the mid and upper abdomen. No pulmonary mass or worrisome nodule. No pneumothorax or pleural effusion. Bones are unremarkable. Gas distended colon in the upper abdomen. IMPRESSION: Large heart without congestive failure. Patchy infiltrate or partial volume loss in the lingula and right perihilar region. Electronically signed by: Bryan Mercado MD 03/10/2020 3:16 PM CDT
--- NOTE | 2020-03-10 17:00 | CT ---
EXAM DESCRIPTION: CTA Chest CLINICAL HISTORY: dyspnea, hypoxia COMPARISON: None. TECHNIQUE: Postcontrast CT images of the chest are obtained using pulmonary embolism imaging protocol. Three-D MIP reconstructed images of the arterial vasculature are obtained. Coronal and sagittal reconstructed images of the also provided. This exam was performed according to our departmental dose-optimization program, which includes automated exposure control, adjustment of the mA and/or kV according to patient size and/or use of iterative reconstruction technique . FINDINGS: Images are moderately degraded by patient breathing motion artifact limiting detailed evaluation. The heart is enlarged. Moderate coronary artery calcifications. Scattered calcified plaque of the thoracic aorta without aneurysmal dilatation or dissection. No definite filling defects or emboli are seen in the pulmonary arteries. No pathologically enlarged mediastinal, hilar, or axillary lymphadenopathy. Small bilateral pleural effusions are seen. Lungs are hypoaerated. Enhancing compressive atelectasis of the bilateral lower lobes is seen. Lungs are poorly aerated. Interstitial thickening in the bilateral upper lobes with patchy areas of groundglass attenuation are seen. Small triangle shaped nodular density in the anterior right horizontal fissure likely represents small intrapulmonary lymph node. Osseous structures show no aggressive bony lesions. Evaluation for subtle rib fracture is limited by breathing motion artifact. No pneumothorax. Mild fluid-filled dilatation of the distal esophagus. Air-fluid levels to the right of the esophagus in the right lower medial chest retrocardiac region measures 4.2 x 2.8 cm. IMPRESSION: No CT evidence of pulmonary embolism. Limited exam secondary to patient breathing motion artifact. Small bilateral pleural effusions with enhancing compressive atelectasis in the bilateral lower lobes. Mild areas of groundglass attenuation and interstitial thickening in the lungs is a nonspecific finding which could represent infectious or inflammatory process including viral pneumonia. Air-fluid level in the right retrocardiac region may represent diverticulum of the distal esophagus. Esophageal perforation should be considered but is less likely. Consider barium swallow, esophagram with the patient can tolerate this. Gastroesophageal reflux is seen. Findings on this exam were called to Dr. Mack Loyola at 03/10/2020 4:57 PM CDT by Nathan Leyva MD. Electronically signed by: Brandon Leyva MD 03/10/2020 4:58 PM CDT
--- NOTE | 2020-03-10 17:04 | CT ---
EXAM DESCRIPTION: Abdomen/Pelvis w/Contrast CLINICAL HISTORY: post-op hernia repair, diarrhea COMPARISON: None. TECHNIQUE: Postcontrast CT images of the abdomen and pelvis are obtained using standard imaging protocol. Images are mildly degraded by patient motion artifact. This exam was performed according to our departmental dose-optimization program, which includes automated exposure control, adjustment of the mA and/or kV according to patient size and/or use of iterative reconstruction technique . FINDINGS: Visualized lung bases show enlargement of the heart with moderate coronary artery calcifications and small bilateral pleural effusions are seen with enhancing compressive atelectasis in the lower lobes. Heterogeneous decreased attenuation of the liver is seen. The spleen, pancreas, and nodular adrenal glands are unchanged from previous. Several less than 5 mm calcified gallstones in the lower aspect of the gallbladder seen without gallbladder wall thickening or inflammation. No biliary tract obstruction. Moderate vascular calcifications. 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 Cortical thinning is seen in the kidneys left greater than right with bilateral renal cortical cysts. The largest on the lower pole left kidney measures 2.9 cm. No ureteral calcification or obstruction. Urinary bladder is distended and unremarkable. Mild enlargement prostate. Gastrostomy tube is seen in place. Small amount of extraluminal air is seen in the mesenteric fat inferior to the gastrostomy tube anterior midline surgical skin jena suggesting recent surgery. Fluid-filled mildly dilated distal esophagus is seen extending into the right lower chest. Dilated air and fluid-filled loops of small bowel and colon throughout the abdomen are seen to the level of the hepatic flexure. Diffuse nondistention of the mid to distal descending and sigmoid colon is seen. No focal obstructing lesion is identified. Loops of small bowel are dilated to approximately 3.8 cm with mild bowel wall thickening. Mild wall thickening of the rectosigmoid colon. No drainable fluid collections. No pathologically enlarged abdominal or retroperitoneal lymphadenopathy. Small fat-containing right inguinal hernia. Osseous structures show no aggressive bony lesions. Osteopenia the osseous structures. Moderate degenerative changes of the spine. Small amount of ascites around the liver and spleen. IMPRESSION: Exam suggest recent postsurgical changes to the abdomen with gastrostomy tube in place and small amount of likely residual postoperative free air. Moderate air and fluid-filled dilatation throughout the entire small bowel and colon to the level of the proximal descending colon. No point of obstruction is seen. Findings likely represent postop ileus versus colon obstruction at the level of the proximal descending colon. Continued follow-up is recommended. Question colitis of the rectosigmoid colon. Small ascites is seen which is likely reactive. Mild diffuse fatty infiltration of the liver. Gastroesophageal reflux is suggested. Bilateral pleural effusions and associated compressive atelectasis in the lower lobes. Air and fluid collection in the right retrocardiac region may represent esophageal diverticulum versus atypical presentation of a hiatal or paraesophageal hernia versus less likely esophageal perforation. Cholelithiasis. Findings on this exam were called to Dr. Mack Loyola at 03/10/2020 4:57 PM CDT by Nathan Leyva MD. Electronically signed by: Brandon Leyva MD 03/10/2020 5:02 PM CDT
[2020-03-10] MEDS ORDERED: VANCOMYCIN HCL INJ 1,000 MG in SODIUM CHLORIDE 0.9% 250ML 250 ML IVPB ONE (17:14)
[2020-03-10] MEDS ORDERED: PIPERACILLIN/TAZOBACTAM 2.25 GM in SODIUM CHLORIDE 0.9% 50ML 50 ML IVPB ONE (17:14)
[2020-03-10] MEDS ORDERED: ASPIRIN (CHEWABLE) 81 MG TAB PO ONE (17:42)
[2020-03-10] MEDS ORDERED: NOREPINEPHRINE BITARTRATE 4 MG/4 ML VIAL IVPB ONE (17:53)
[2020-03-10] MEDS ORDERED: SODIUM CHLORIDE 0.9% 1000ML 1,000 ML ONE (17:54)
[2020-03-10] MEDS ORDERED: DEXTROSE 5% 250ML 250 ML ONE (17:54)
[2020-03-10] MEDS ORDERED: NOREPINEPHRINE BITARTRATE 4 MG in DEXTROSE 5% 250ML 250 ML IVPB SCH ×4 (18:00)
[2020-03-10 18:15] VITALS: BP 74/55; O2SAT 92
[2020-03-10] MEDS ORDERED: MORPHINE SULFATE INJ 10 MG/ML VIAL ONE (19:25)
[2020-03-10] MEDS ORDERED: MORPHINE SULFATE INJ 10 MG/ML VIAL IV ONE ×2 (19:26→19:35)
--- NOTE | 2020-03-11 10:23 | CONS ---
DATE OF CONSULTATION: 03/10/20 REASON FOR CONSULTATION: Respiratory distress. HISTORY OF PRESENT ILLNESS: Mr. Francois is a 74-year-old man who underwent repair of a large paraesophageal hernia on 03/05/20, now postoperative day 5. The surgery was uncomplicated. He was discharged home on postoperative day 4. His son brought him in and said he just was not doing well, that he had fallen once, he had not been eating. He denied any nausea or vomiting, denied any fevers or chills, denied any abdominal pain. When I first examined the patient, he looked pale. He was conscious, alert and well oriented. He was not having difficulty breathing, but on a non-rebreather mask saturating 90%. In speaking to the patient, he denies any abdominal pain, no nausea, no vomiting. He had been taking liquids although a limited amount. His son also stated he had a few bouts of diarrhea. It is reported that he had a glucose of 25 and initial sat 70% on room upon arrival. Other than normal pain from his abdominal surgery, it had been getting better. PAST MEDICAL HISTORY: 1. Hypertension. 2. Gastroesophageal reflux disease. 3. Hypercholesterolemia. MEDICATIONS: 1. Amlodipine 5 mg b.i.d. 2. Antacid 650 mg t.i.d. 3. Megared Superior Morrison-3 500 mg 1 daily. 4. Vitamin B12 1000 mcg daily. 5. Multivitamin 1 tablet daily. 6. Aspirin 81 mg daily. 7. Hydrochlorothiazide 12.5 mg daily. 8. Omeprazole 20 mg daily. 9. Lisinopril 20 mg daily. 10.Zocor 20 mg daily. ALLERGIES: BACLOFEN, INDOCIN. FAMILY HISTORY: Noncontributory. SOCIAL HISTORY: The patient denies history of smoking or alcohol use. REVIEW OF SYSTEMS: He has no specific complaints. HEENT: No headache, visual changes, sore throat. RESPIRATORY: He has had some cough. CARDIOVASCULAR: No chest pain. GASTROINTESTINAL: No abdominal pain. Diarrhea as mentioned above. GENITOURINARY: No frequency, dysuria or hematuria. EXTREMITIES: No complaints. PHYSICAL EXAMINATION: VITAL SIGNS: Temperature 97. Heart rate 60s to 70s. Blood pressure at the time of my evaluation was in the 90s. GENERAL: The patient is alert and oriented x3. He has the facemask and not showing respiratory distress, but he is hypoxic. HEENT: Sclerae anicteric. Oral mucosa is tacky. NECK: Supple. CHEST: Diminished breath sounds bilaterally from the midchest down. HEART: Regular. ABDOMEN: Mildly distended, soft, nontender. No rebound, no guarding. Surgical dressing was removed and the incision shows slight ecchymosis, but no evidence of infection. The G-tube showed no sign of complication. It was placed to suction and brought 200 cc of bilious fluid. EXTREMITIES: No edema. LABORATORY: Initial labs showed white blood cell count 5, hematocrit 33, platelet count 249 with 51 bands. D-dimer 1600. CMP showed potassium 5.3, BUN 51, creatinine 4.2. Initial random glucose was 21, repeat I believe was in the 60s. Lactate 3.8. BMP 699. Urinalysis, I do not have the result. IMAGING: I spoke to his son and at this time, CT of the abdomen and pelvis is pending. When the results of the CT abdomen and pelvis came back, the abdominal scan showed post surgical changes with a little bit of air and fluid in the chest consistent with the paraesophageal hernia. There is fluid-filled dilated bowel throughout and small bowel in the colon and decompressed distal colon consistent with an ileus and a slight amount of free air consistent with the surgery. A small amount of ascites, bilateral pleural effusions and atelectasis, cholelithiasis and question of colitis in the rectosigmoid. CT chest impression showed bilateral effusion, hypoaeration, atelectasis, ground glass attenuation, interstitial thickening and the air-fluid level in the retrocardiac area again. Also noted on the abdominal CT is severe stenosis in the celiac. IMPRESSION/PLAN: The patient is postoperative from paraesophageal hernia repair who comes in unstable, in respiratory distress, possibly septic. Uncertain source at this time. Urinalysis is pending. His abdomen appears benign. The CT scan shows no evidence of complication from surgery. There is no obvious pneumonia in the lung, but he is hypoxic. In discussion with the Emergency Room physician and the patient's son, there is no obvious source of his illness. He is being hydrated at this time. Antibiotics will be started. I discussed with the emergency physician and the uncertainty as to what is happening, the patient may require ICU, so transfer was being arranged. I discussed with the son and gave him my phone number to call if the physicians had any questions where he will be transferred. I got a call later that evening that the patient went into more respiratory distress and then later passed. FINAL DIAGNOSIS: 1. Respiratory failure, uncertain cause. 2. Likely sepsis, uncertain cause. 3. No evidence of complication from surgery in the abdomen. #[id number] MTDD
== END 2020-03-10 21:09 | disposition expired ==
LOC: ER 14:27
DX: I46.9 Cardiac arrest, cause unspecified (principal); A41.9 Sepsis, unspecified organism; R65.21 Severe sepsis with septic shock; J96.01 Acute respiratory failure with hypoxia; R19.7 Diarrhea, unspecified; I10 Essential (primary) hypertension; Z79.82 Long term (current) use of aspirin; Z79.899 Other long term (current) drug therapy
CPT/HCPCS: 36415; 36416; 70450; 71045; 71275; 74177; 80053; 82948; 83605; 83880; 84484; 85025; 85379; 87040; 87635; 93005; 94760; A4216; J2270; J2543; J3370; J7030; J7050; J7060; J7799